=== PATIENT | female | born 1960 | race Caucasian/White ===

== ENCOUNTER 2019-01-28 11:14 | Emergency (ER) | payer BC, OTHER ==
[2019-01-28] MEDS ORDERED: diphenhydrAMINE 12.5 MG/5 ML UDCUP ONE (11:45)
[2019-01-28] MEDS ORDERED: Acetaminophen 500 MG TAB ONE (11:45)
[2019-01-28] MEDS ORDERED: Metoclopramide HCl 10 MG/2 ML VIAL ONE (11:45)
[2019-01-28] MEDS ORDERED: diphenhydrAMINE 50 MG/ML VIAL ONE (11:46)
[2019-01-28 11:57] LABS: #Basophils 0.1 thou/uL (0.0-0.2); #Lymphocytes 0.5 thou/uL (1.20-3.40); #Monocytes 0.1 thou/uL (0.11-0.59); %Basophils 0.7 % (0.0-1.0); %Lymphocytes 6.5 % (21.0-51.0); %Monocytes 1.4 % (0.0-10.0); %Neutrophils 91.4 % (42.0-75.0); Hemoglobin 14.2 g/dL (12.0-16.0); Mean Corpuscular HGB CONC 33.6 g/dL (32.0-36.0); Mean Corpuscular Hemoglobin 29.4 pg (27.0-31.0); Mean Corpuscular Volume 87.6 fL (78.0-98.0); Mean Platelet Volume 7.3 fL (7.4-10.4); Platelet Count 311 thou/uL (130-400); RBC Distribution Width 11.8 % (11.5-14.5); Red Blood Cell (RBC) Count 4.83 mill/uL (4.20-5.40); White Blood Cell (WBC) Count 7.7 thou/uL (4.8-10.8)
[2019-01-28 12:01] LABS: INR-International Normal Ratio 0.9; PTT 25.7 SEC (22.9-36.1); Prothrombin Time 12.3 SEC (12.0-14.7)
[2019-01-28 12:08] LABS: Anion Gap 18 mmol/L (10-20); BUN (Urea Nitrogen) 20 mg/dL (9.8-20.1); Calc. Creatinine Clearance 0 mL/min (70-130); Carbon Dioxide 23 mmol/L (22-29); Chloride 103 mmol/L (98-107); Estimated GFR-MDRD 74; Glucose 124 mg/dL (70-105); Sodium 140 mmol/L (136-145)
--- NOTE | 2019-01-28 12:40 | CT ---
Exam: Head CT without contrast HISTORY: Headache. Emesis. COMPARISON: none FINDINGS: Hemorrhage: No intraparenchymal hemorrhage or extra-axial hematoma. Brain parenchyma: Cortical kim-white matter differentiation is preserved. No mass effect or midline shift. Basilar cisterns are patent. Ventricular system: Ventricles and sulci are patent and symmetric. Calvarium: Intact. Sinuses and mastoid air cells: Adequate aeration. IMPRESSION: No acute intracranial process.
[2019-01-28] MEDS ORDERED: Morphine 4 MG/ML VIAL ONE (13:28)
[2019-01-28 14:57] LABS: Color Of CSF Supernatant COLORLESS (Colorless); Tube # 2; Unspun CSF Color COLORLESS (Colorless)
[2019-01-28 15:11] LABS: CSF, Glucose 73 mg/dl (40-70); CSF, Protein 39 mg/dL (15-40)
[2019-01-28 15:44] LABS: CSF Source CSF; Clarity Clear (Clear); Tube # 1
[2019-01-28 15:45] LABS: CSF Source CSF; Clarity Clear (Clear); Tube # 4
== END 2019-01-28 16:00 | disposition home or self-care (01) ==
LOC: SCSER 11:14
DX: R51 Headache (principal)
CPT/HCPCS: 62270; 70450; 80048; 82945; 84157; 85025; 85610; 85730; 87070; 87205; 89051; 96365; 96375; J1200; J2270; J2765; Q0163

== ENCOUNTER 2020-07-06 14:50 | Outpatient (CLI) | payer BC | END 2020-07-06 14:51 | disposition home or self-care (01) | LOC: SCSRAD 14:50 | PROVIDERS: ATTEND Chiropractor | DX: R26.2 Difficulty in walking, not elsewhere classified (principal) ==